=== PATIENT | male | born 1995 | race Caucasian/White ===

== ENCOUNTER 2017-01-30 14:36 | Emergency (ER) | payer OTHER ==
--- NOTE | 2017-01-30 17:13 | ED NURSING NOTES ---
Clinical Report - Nurses [facility] [place] [address] 01/30/2017 14:37 Patient: THOMAS CHOUDHARY TRIAGE Acuity: LEVEL 2. Chief Complaint: ALTERED MENTAL STATUS and DECREASED RESPONSIVENESS. No acute distress. SEPSIS SCREEN: Sepsis Screen. Negative (no infection suspected/documented). SUZIE COMA SCORE: [place] Coma Scale: 14- eyes open to voice (3); best verbal response- oriented x 4 (5); best motor response- obeys commands (6). --14:44 Ayde Butler R.N. 14:34 01/30/17. BP: 155/94. HR: 98. RR: 13. O2 saturation: 89% on room air. Temp: 97.7 F (oral). Pain level now: 0/10. --14:44 Ayde Butler R.N. Weight: 61.2 kg stated. Height/Length: 68 inches Per Patient. BMI: 20.5. --14:42 Ayde Butler R.N. Medications None. --14:37 Ayde Butler R.N. Medication/allergy information source: the patient. --14:44 Ayde Butler R.N. Allergies No Known Drug Allergy. --14:37 Ayde Butler R.N. History Arrived by EMS. Historian: EMS and patient. Unaccompanied. This started today. ( Pt reports he shot heroin and meth around 0900 today. EMS reports pt was found at a bus stop with decreased LOC. Police were called, who in turn called EMS.). PAST MEDICAL HX: Immunizations: up-to-date. SOCIAL HX: Current every day light tobacco smoker (cigarette)- less than 1/2 a pack per day. Occasional alcohol use. History of IV drug use: heroin, methamphetamines, marijuana. Recently used drugs today. Under influence in ED. NUTRITIONAL RISK ASSESSMENT: The nutritional risk assessment revealed no deficiencies. FUNCTIONAL ASSESSMENT: Functional assessment: no impairments noted. LEARNING NEEDS ASSESSMENT: The learning needs assessment revealed no barriers. FALL RISK ASSESSMENT: Fall risk assessment completed. Risk factors identified include patient impairment of mobility. Fall interventions initiated. Side rails up x2. Brakes on Bed in low position. Patient visible from nurses' station. Call light in reach. SKIN INTEGRITY ASSESSMENT: Skin integrity risk assessment completed. No skin integrity risk identified. --14:44 Ayde Butler R.N. PROBLEMS: Substance Abuse. Laceration. Tetanus Status. Immunizations. --14:48 Ayde Butler R.N. Assessment GENERAL / NEURO / PSYCH: Oriented X 4. Appears in no acute distress. Patient appears calm and cooperative. RESPIRATORY: Respirations not labored. Breath sounds within normal limits. CVS: Cardiac rhythm: sinus tachycardia. Capillary refill less than 2 seconds. GI / : Abdomen nontender. SKIN: Mucous membranes are pink. Skin is warm and dry. --14:44 Ayde Butler R.N. Interventions ID band on patient. To treatment room. --14:44 Ayde Butler R.N. PHYSICAL ASSESSMENT To room via stretcher. GENERAL / NEURO / PSYCH: Alert. Oriented X 4. Appears in no acute distress. Speech within normal limits. Patient appears well-nourished and neat and clean. CVS: Capillary refill less than 2 seconds. GI / : Abdomen soft and nontender. SKIN: Skin is warm and dry. Normal skin turgor. --14:45 Ayde Butler R.N. NURSING PROGRESS NOTES 14:11 01/30/2017 Started bag #1 1000 mL IV Fluids IV NS (Saline); at 1000 mL/hr over 1 hour(s) via site #1. Allergies verified and confirmed 5 rights. IV patency established. IV site checked: no pain, redness, or swelling. IV flushed thoroughly pre- and post-medication administration (bag 1 started by EMS SUPERINTENDENT MARINE). --16:11 Ayde Butler R.N. 14:46 01/30/17. Oxygen administered by nasal cannula at 2 liters. child monitor, pulse oximeter and NIBP monitor placed on patient; monitor alarms on. Patient gowned. Head of bed elevated. Two patient identifiers checked. Call light placed in reach. Side rails up x 1. Bed placed in lowest position. Brakes of bed on. Patient ready for evaluation- chart flagged and SENIOR PRODUCT DEVELOPMENT SCIENTIST notified. --14:46 Ayde Butler R.N. 14:46 01/30/17. Finger stick glucose: 140 mg/dL; performed by nurse. --14:46 Ayde Butler R.N. 14:53 01/30/17. BP: 142/79. HR: 89. RR: 17. O2 saturation: 100% on nasal cannula at 2 liters/minute. --14:53 Ayde Butler R.N. Patient ID band checked for patient name and birthdate: patient confirmed. Blood samples drawn from the left hand with 23g butterfly by tech per protocol ; labeled in presence of the patient and sent to lab: rainbow set and red, green, purple and blue top. --15:04 Lucinda Garza ER Tech1 15:34 01/30/17. BP: 122/91. HR: 95. RR: 16. O2 saturation: 100%. --15:35 Ayde Butler R.N. 16:07 01/30/17. Visitor at bedside (father). --16:07 Ayde Butler R.N. 16:08 01/30/17. ( Pt has attempted to void several times. Pt unable to void at this time.). --16:08 Ayde Butler R.N. 16:09 01/30/2017 Site #1 started prior to arrival by EMS via IV in the right wrist with an 18g angiocath. --16:09 Ayde Butler R.N. 16:11 01/30/2017 IV Fluids IV NS Discontinued: bag #1 infused. Total amount infused: 1000 mL. IV patency established. IV site checked: no pain, redness, or swelling. IV flushed thoroughly. --16:11 Ayde Butler R.N. DISPOSITION / DISCHARGE 17:16 01/30/17. BP: 148/95. HR: 92. RR: 13. O2 saturation: 100%. --17:18 Ayde Butler R.N. 17:23 01/30/17. Temp: 97.3 F. Pain level now: 0/10. --17:23 Ayde Butler R.N. Departure time: 17:Jan 30 2017. Condition at departure: improved and stable. No learning barriers present. Discharge instructions provided and reviewed with the patient and family. Patient and family verbalized understanding. Written instructions provided in [place]. The patient was discharged by the nurse practitioner. He was discharged home and accompanied by family. He left the Emergency Department ambulatory and via private vehicle. Family member driving. --17:24 Ayde Butler R.N. 17:19 01/30/2017 Site #1 removed upon discharge. Catheter intact. Manual pressure and bandaid applied. --17:24 Ayde Butler R.N. Locked/Released at 01/30/2017 17:24 by Ayde Butler R.N.
--- NOTE | 2017-01-30 17:13 | ED ORDER SUMMARY ---
..... Patient: THOMAS CHOUDHARY OrderSheet [facility] VisitID: [id number] [place] [address] 21y, M Registration Date/Time: 01/30/2017 ORDER SHEET Weight: 61.2 kg (stated) Allergies: No Known Drug Allergy GENERAL ORDERS: Art Framing Manager (Continuous) (14:34 01/30/2017 HBivens A.R.N.P.) (14:47 MWinterer R.N.) CBC w Diff Urgent (14:34 01/30/2017 HBivens A.R.N.P.) (Ack 14:47 PWeiler ER Tech1) (14:49 MWinterer R.N.) CMP Urgent (14:34 01/30/2017 HBivens A.R.N.P.) (Ack 14:47 PWeiler ER Tech1) (14:49 MWinterer R.N.) UA-Culture if indicated Urgent (14:34 01/30/2017 HBivens A.R.N.P.) (Ack 14:47 PWeiler ER Tech1) Urine Drug Screen Urgent (14:34 01/30/2017 HBivens A.R.N.P.) (Ack 14:47 PWeiler ER Tech1) POC Glucose (14:50 01/30/2017 HBivens A.R.N.P.) (14:52 MWinterer R.N.) MEDICATION ORDERS: IV FLUIDS: IV NS : initial bolus none -, then 1000 mL/hr (NOW) (16:08 01/30/2017 MWinterer R.N. per protocol) (16:11 MWinterer R.N.) ORDER SHEET NOTES: [Electronically signed by Ayde Butler R.N. (17:24 01/30/2017)] [Electronically signed by Jennifer HammondsR.N.P. (22:05 01/30/2017)] [Electronically locked/signed by Ayde Butler R.N. (17:24 01/30/2017)]
--- NOTE | 2017-01-30 17:13 | ED CLINICAL REPORT ---
Clinical Report - Physicians/Mid Levels [facility] [address] [place] [address] 01/30/2017 14:37 Patient: THOMAS CHOUDHARY Time Seen: 1424; upon arrival, initial patient contact, initial documentation, patient care assumed. Arrived- By ambulance. Historian- patient and EMS personnel. HISTORY OF PRESENT ILLNESS Chief Complaint: DECREASED MENTAL STATUS and CHANGED MENTAL STATUS. This started just prior to arrival and is still present. It was abrupt in onset. The patient is described as having decreased responsiveness. History of recent drug use. (says he did his heroin and meth today around 0900, found out bus stop, bystander called police, and police called ems). No weakness, numbness or recent fall. He has had difficulty walking. Usually is alert and oriented X3 and usually has normal mobility. Similar symptoms previously: None. Recent medical care: Not recently seen/assessed. REVIEW OF SYSTEMS No fever, headache, head injury, chest pain or difficulty breathing. No abdominal pain or vomiting. All systems otherwise negative, except as recorded above. PAST HISTORY See nurses notes. ( PROBLEMS: Substance Abuse. Laceration. Tetanus Status. Immunizations. --14:48 Ayde Butler R.N.). SOCIAL HISTORY Light tobacco smoker. Occasional alcohol use. History of heavy IV drug use: heroin, methamphetamines, marijuana. Recently used drugs just prior to arrival. Under influence in ED. No recent travel. Is a local resident. FAMILY HISTORY Negative. ADDITIONAL NOTES The nursing notes have been reviewed with agreement regarding the chief complaint, HPI, ROS, PMH and patient medications and allergies. PHYSICAL EXAM Vital Signs: 01/30/2017 14:34 BP: 155/94. HR: 98. RR: 13. O2 saturation: 89%. Temp: 97.7 F. Pain level now: 0/10. Have been reviewed as abnormal and appear to be correct. Blood pressure normal. Heart rate normal. Respiratory rate normal. Temperature normal. Oxygen saturation: 100 % now at 1450- oxygen saturation low. Appearance: No acute distress. Not alert. (sleepy). Head: Head atraumatic. Eyes: Pupils equal, round and reactive to light. ENT: Normal ENT inspection. Airway intact. Moist mucous membranes. Pharynx normal. Neck: Normal inspection. Neck supple. CVS: Normal heart rate and rhythm. Heart sounds normal. Pulses normal. Respiratory: No respiratory distress. Breath sounds normal. Abdomen: Soft and nontender. No organomegaly. Back: Normal inspection. Skin: Skin warm and dry. Normal skin color. No rash. Normal skin turgor. Extremities: Extremities exhibit normal ROM. No lower extremity edema. Neuro: Not alert. Oriented X 3. Alertness is decreased(drowsy). Mood/affect normal. Speech normal. Cranial nerves normal (as tested). No cerebellar findings. No motor deficit. No sensory deficit. LABS, X-RAYS, AND EKG Laboratory Tests: CBC w Diff: (LUIS: 01/30/2017 14:45) ( [facility] 01/30/[place] 15:07) Final results Test Result Flag Units (Reference) WHITE BLOOD COUNT 6.6 K/uL (4.5-11.5) RED BLOOD COUNT 4.92 M/uL (4.50-5.90) HEMOGLOBIN 14.9 gm/dL (13.5-17.5) HEMATOCRIT 42.5 % (41.0-53.0) MEAN CELL VOLUME 86 fL (80-100) MEAN CORPUSCULAR HGB 30 pg (26-34) MEAN CORPUSCULAR HGB CONC 35 g/dL (31-37) RED CELL DISTRIBUTION WIDTH 12.4 % (11.6-14.8) PLATELET COUNT 195 K/uL (150-400) NEUTROPHIL % 68.7 % (50-75) LYMPH % 18.6 L % (25-40) MONO % 11.4 % (3-14) EOSINOPHIL % 0.9 % (0-4) BASOPHIL % 0.4 % (0-2) CMP: (LUIS: 01/30/2017 14:45) ( [facility] 01/30/2017 15:24) Final results Test Result Flag Units (Reference) GLUCOSE 145 H mg/dL (70-110) BUN 18 mg/dL (7-18) CREATININE 1.4 H mg/dL (0.6-1.3) Estimated GFR >60 mL/min Estimated GFR- >60 mL/min Note: Persistent reduction over 3 months in eGFR<60 mL/min/1.73 m2 defines CKD. Patients with eGFR values>=60 mL/min/1.73 m2 may also have CKD if evidence ofpersistent proteinuria. Additional information may be foundat www.kidney.org. SODIUM 138 mmol/L (136-145) POTASSIUM 3.5 mmol/L (3.5-5.1) CHLORIDE 101 mmol/L (98-107) CARBON DIOXIDE 27 mmol/L (21-32) CALCIUM 8.6 mg/dL (8.5-10.1) TOTAL PROTEIN 7.6 g/dL (6.4-8.2) ALBUMIN 4.4 g/dL (3.3-5.0) BILIRUBIN, TOTAL 0.8 mg/dL (0.0-1.0) ALKALINE PHOSPHATASE 69 U/L (46-116) AST (SGOT) 23 U/L (15-37) ALT (SGPT) 26 U/L (12-78) . Bedside Tests: Glucose normal - 140 (performed at bedside). PROGRESS AND PROCEDURES Course of Care: 15:02 01/30/17. pt resting quietly, nad, resp even and unlabored, opened eyes as soon as I walked into room 1655. Dad and stepmom here, at bedside to speak with them both, agreed to take pt home, pt lives with grandparents, pt asleep, vs normal, resp even and unlabored, pt snoring, pt awakened, aware that dad is now here, agreed to dc Pt still has not voided yet. 01/30/2017 14:53 BP: 142/79. HR: 89. RR: 17. O2 saturation: 100%. Vital Signs: have been reviewed as normal and appear to be correct. Father counseled in person regarding the patient's stable condition, test results and diagnosis. 1655. Differential Diagnosis: Other possible considerations: od, substance abuse, tia, brain injury, cva, hypoglycemia. Above considerations are based on history, physical exam, reassessment and laboratory data. Differential diagnosis was discussed with patient. Disposition: Discharged home in good and improved condition (17:13). Condition: good and stable. CLINICAL IMPRESSION Chronic substance abuse- marijuana, heroin, methamphetamines with intoxication. INSTRUCTIONS Warnings: GENERAL WARNINGS: Return or contact your physician immediately if your condition worsens or changes unexpectedly, if not improving as expected, or if other problems arise. Specifically return if problem worsens. Follow-up: Follow up with your doctor in about two days even if well. Call for an appointment. Summary of care provided to patient and family. Understanding of the discharge instructions verbalized by patient and family. (Electronically signed by Jennifer Hammonds A.R.NHeather 01/30/2017 22:05)
--- NOTE | 2017-01-30 17:13 | ED NURSING NOTES ---
Clinical Report - Nurses [facility] [place] [address] 01/30/2017 14:37 Patient: THOMAS CHOUDHARY TRIAGE Acuity: LEVEL 2. Chief Complaint: ALTERED MENTAL STATUS and DECREASED RESPONSIVENESS. No acute distress. SEPSIS SCREEN: Sepsis Screen. Negative (no infection suspected/documented). SUZIE COMA SCORE: [place] Coma Scale: 14- eyes open to voice (3); best verbal response- oriented x 4 (5); best motor response- obeys commands (6). --14:44 Ayde Butler R.N. 14:34 01/30/17. BP: 155/94. HR: 98. RR: 13. O2 saturation: 89% on room air. Temp: 97.7 F (oral). Pain level now: 0/10. --14:44 Ayde Butler R.N. Weight: 61.2 kg stated. Height/Length: 68 inches Per Patient. BMI: 20.5. --14:42 Ayde Butler R.N. Medications None. --14:37 Ayde Butler R.N. Medication/allergy information source: the patient. --14:44 Ayde Butler R.N. Allergies No Known Drug Allergy. --14:37 Ayde Butler R.N. History Arrived by EMS. Historian: EMS and patient. Unaccompanied. This started today. ( Pt reports he shot heroin and meth around 0900 today. EMS reports pt was found at a bus stop with decreased LOC. Police were called, who in turn called EMS.). PAST MEDICAL HX: Immunizations: up-to-date. SOCIAL HX: Current every day light tobacco smoker (cigarette)- less than 1/2 a pack per day. Occasional alcohol use. History of IV drug use: heroin, methamphetamines, marijuana. Recently used drugs today. Under influence in ED. NUTRITIONAL RISK ASSESSMENT: The nutritional risk assessment revealed no deficiencies. FUNCTIONAL ASSESSMENT: Functional assessment: no impairments noted. LEARNING NEEDS ASSESSMENT: The learning needs assessment revealed no barriers. FALL RISK ASSESSMENT: Fall risk assessment completed. Risk factors identified include patient impairment of mobility. Fall interventions initiated. Side rails up x2. Brakes on Bed in low position. Patient visible from nurses' station. Call light in reach. SKIN INTEGRITY ASSESSMENT: Skin integrity risk assessment completed. No skin integrity risk identified. --14:44 Ayde Butler R.N. PROBLEMS: Substance Abuse. Laceration. Tetanus Status. Immunizations. --14:48 Ayde Butler R.N. Assessment GENERAL / NEURO / PSYCH: Oriented X 4. Appears in no acute distress. Patient appears calm and cooperative. RESPIRATORY: Respirations not labored. Breath sounds within normal limits. CVS: Cardiac rhythm: sinus tachycardia. Capillary refill less than 2 seconds. GI / : Abdomen nontender. SKIN: Mucous membranes are pink. Skin is warm and dry. --14:44 Ayde Butler R.N. Interventions ID band on patient. To treatment room. --14:44 Ayde Butler R.N. PHYSICAL ASSESSMENT To room via stretcher. GENERAL / NEURO / PSYCH: Alert. Oriented X 4. Appears in no acute distress. Speech within normal limits. Patient appears well-nourished and neat and clean. CVS: Capillary refill less than 2 seconds. GI / : Abdomen soft and nontender. SKIN: Skin is warm and dry. Normal skin turgor. --14:45 Ayde Butler R.N. NURSING PROGRESS NOTES 14:11 01/30/2017 Started bag #1 1000 mL IV Fluids IV NS (Saline); at 1000 mL/hr over 1 hour(s) via site #1. Allergies verified and confirmed 5 rights. IV patency established. IV site checked: no pain, redness, or swelling. IV flushed thoroughly pre- and post-medication administration (bag 1 started by EMS INFORMATICS ANALYST). --16:11 Ayde Butler R.N. 14:46 01/30/17. Oxygen administered by nasal cannula at 2 liters. salvage inspector, pulse oximeter and NIBP monitor placed on patient; monitor alarms on. Patient gowned. Head of bed elevated. Two patient identifiers checked. Call light placed in reach. Side rails up x 1. Bed placed in lowest position. Brakes of bed on. Patient ready for evaluation- chart flagged and COMPENSATION INTERN notified. --14:46 Ayde Butler R.N. 14:46 01/30/17. Finger stick glucose: 140 mg/dL; performed by nurse. --14:46 Ayde Butler R.N. 14:53 01/30/17. BP: 142/79. HR: 89. RR: 17. O2 saturation: 100% on nasal cannula at 2 liters/minute. --14:53 Ayde Butler R.N. Patient ID band checked for patient name and birthdate: patient confirmed. Blood samples drawn from the left hand with 23g butterfly by tech per protocol ; labeled in presence of the patient and sent to lab: rainbow set and red, green, purple and blue top. --15:04 Lucinda Garza ER Tech1 15:34 01/30/17. BP: 122/91. HR: 95. RR: 16. O2 saturation: 100%. --15:35 Ayde Butler R.N. 16:07 01/30/17. Visitor at bedside (father). --16:07 Ayde Butler R.N. 16:08 01/30/17. ( Pt has attempted to void several times. Pt unable to void at this time.). --16:08 Ayde Butler R.N. 16:09 01/30/2017 Site #1 started prior to arrival by EMS via IV in the right wrist with an 18g angiocath. --16:09 Ayde Butler R.N. 16:11 01/30/2017 IV Fluids IV NS Discontinued: bag #1 infused. Total amount infused: 1000 mL. IV patency established. IV site checked: no pain, redness, or swelling. IV flushed thoroughly. --16:11 Ayde Butler R.N. DISPOSITION / DISCHARGE 17:16 01/30/17. BP: 148/95. HR: 92. RR: 13. O2 saturation: 100%. --17:18 Ayde Butler R.N. 17:23 01/30/17. Temp: 97.3 F. Pain level now: 0/10. --17:23 Ayde Butler R.N. Departure time: 17:Jan 30 2017. Condition at departure: improved and stable. No learning barriers present. Discharge instructions provided and reviewed with the patient and family. Patient and family verbalized understanding. Written instructions provided in [place]. The patient was discharged by the nurse practitioner. He was discharged home and accompanied by family. He left the Emergency Department ambulatory and via private vehicle. Family member driving. --17:24 Ayde Butler R.N. 17:19 01/30/2017 Site #1 removed upon discharge. Catheter intact. Manual pressure and bandaid applied. --17:24 Ayde Butler R.N. Locked/Released at 01/30/2017 17:24 by Ayde Butler R.N.
--- NOTE | 2017-01-30 17:13 | ED ORDER SUMMARY ---
..... Patient: THOMAS CHOUDHARY OrderSheet [facility] VisitID: [id number] [place] [address] 21y, M Registration Date/Time: 01/30/2017 ORDER SHEET Weight: 61.2 kg (stated) Allergies: No Known Drug Allergy GENERAL ORDERS: Digital Strategist (Continuous) (14:34 01/30/2017 HBivens A.R.N.P.) (14:47 MWinterer R.N.) CBC w Diff Urgent (14:34 01/30/2017 HBivens A.R.N.P.) (Ack 14:47 PWeiler ER Tech1) (14:49 MWinterer R.N.) CMP Urgent (14:34 01/30/2017 HBivens A.R.N.P.) (Ack 14:47 PWeiler ER Tech1) (14:49 MWinterer R.N.) UA-Culture if indicated Urgent (14:34 01/30/2017 HBivens A.R.N.P.) (Ack 14:47 PWeiler ER Tech1) Urine Drug Screen Urgent (14:34 01/30/2017 HBivens A.R.N.P.) (Ack 14:47 PWeiler ER Tech1) POC Glucose (14:50 01/30/2017 HBivens A.R.N.P.) (14:52 MWinterer R.N.) MEDICATION ORDERS: IV FLUIDS: IV NS : initial bolus none -, then 1000 mL/hr (NOW) (16:08 01/30/2017 MWinterer R.N. per protocol) (16:11 MWinterer R.N.) ORDER SHEET NOTES: [Electronically signed by Ayde Butler R.N. (17:24 01/30/2017)] [Electronically signed by Jennifer HammondsR.N.P. (22:05 01/30/2017)] [Electronically locked/signed by Ayde Butler R.N. (17:24 01/30/2017)]
--- NOTE | 2017-01-30 22:05 | ED MED RECONCILIATION SUMMARY ---
Patient: THOMAS CHOUDHARY Medication Reconciliation Report [facility] VisitID: [id number] [address] [place] [address] 21y, M Registration Date/Time: 01/30/2017 Weight: 61.2 kg Height/Length: 68 in. BMI: 20.5 ALLERGIES: No Known Drug Allergy The patient's Home Medications are listed below: NONE. The source(s) of the original Home Medication information: patient The following Medications were given to the patient in the Emergency Department: IV NS IV Fluids bolus 0, then 1000 mL/hr, administered: 01/30/2017 2:11:00 PM The following Medications were prescribed to the patient: None.
--- NOTE | 2017-01-30 22:05 | ED DISCHARGE INSTRUCTIONS ---
Patient: THOMAS CHOUDHARY General Instructions [facility] VisitID: [id number] [place] [address] 21y, M Registration Date/Time: 01/30/2017 Chronic substance abuse- marijuana, heroin, methamphetamines with intoxication. INSTRUCTIONS Warnings: GENERAL WARNINGS: Return or contact your physician immediately if your condition worsens or changes unexpectedly, if not improving as expected, or if other problems arise. Specifically return if problem worsens. Follow-up: Follow up with your doctor in about two days even if well. Call for an appointment. Summary of care provided to patient and family. Understanding of the discharge instructions verbalized by patient and family. ADDITIONAL INFORMATION Drug Abuse Use and abuse of such drugs as marijuana, amphetamines (speed, crank), cocaine, heroin or prescription pain medicines (Vicodin, codeine), sedatives and sleeping pills (Valium, Klonopin), PCP, mescaline and LSD may lead to addiction or dependence. Once this occurs, you are at greater risk for any of the following: Craving for the drug and unable to stop using the drug even though you think you want to stop (psychological dependence) Drug withdrawal symptoms if you stop taking the drug (physical dependence) Loss of your job or your family Arrest, conviction and [place] [facility] sentence for possession of an illegal substance or for driving under the influence of such a substance Accidental injuries to yourself or others while you are under the influence of the drug (in a car or at home). HIV infection (much greater risk if you use IV drugs) Other sexually transmitted diseases (herpes, chlamydia, gonorrhea and others) Severe and fatal infection of the heart valves (if you use IV drugs) Stroke, heart attack, hepatitis B or C, kidney failure from overdose Home Care: Admit you have a drug problem. Ask for help from your family and close friends. Seek professional help. This could be in the form of individual psychotherapy or counseling or an outpatient, inpatient, or residential drug treatment program. Join a self-help group for drug abuse. Avoid friends who abuse drugs themselves or tempt you to continue abusing drugs. Eat a balanced diet and begin a regular exercise program. Follow Up with your doctor or as advised by our staff. Contact one of the resources below for help. National [place] on Alcoholism and Drug Dependence www.ncadd.org 051-062-FDOD Narcotics Anonymous www.na.org 230-644-0351 National Alcohol and Substance Abuse Information Center (for referral to treatment programs) www.[employer] 993-723-0671 Get Prompt Medical Attention if any of the following occur: Agitation, anxiety, unable to sleep Unintended weight loss (more than 10 to 15 pounds over 3 months) Seizure Chest pain Fever of 100.4F (38C) or higher, or as directed by your healthcare provider Excess drowsiness or inability to be awakened Shortness of breath Slow breathing under 8 breaths per minute Cough with colored sputum Redness, swelling or tenderness at an injection site Marijuana Abuse Marijuana is the most widely used illegal drug in the [place]. It is called by various names such as pot, weed, blunts, grass, reefer, ganja, hash, hashish. It is usually smoked but can be mixed with foods or brewed as a tea. It is sometimes sold with PCP (Trell Dust) or amphetamine mixed in it. These drugs can cause other harmful side effects. Marijuana can cause the following effects: Changes in mood (stimulated, happy, drowsy, depressed, paranoid) Hallucinations Increased heart rate and blood pressure Increased appetite Time distortion, difficulty concentrating, impaired memory Lung damage (similar to cigarettes with chronic cough, wheezing, frequent colds and bronchitis) You can become psychologically dependent on marijuana. That means the craving to use the drug is emotional or psychological rather than due to physical withdrawal. Is Marijuana Running Your Life? Here are some of the signs: Relying on marijuana to feel good, forget problems, deal with stress or to relax Wanting to be alone most of the time or only with others who use drugs Losing interest in things that used to be important Changes in school or job performance or attendance Spending a lot of time thinking about how to get marijuana Stealing or selling your things so you can buy marijuana Unable to stop using even though you may want to quit Increasing anxiety, anger,or depression Sleeping too much, changes in eating habits (weight loss or gain) Needing to use more to get the same effect Home Care Once you have become addicted to any drug, quitting is hard to do. Most people find they can't quit without help. So, dont try to do this alone. Talk to someone you trust who can support you. Seek professional help. Avoid people and places where drugs are used. That only increases the temptation to use. Follow Up with your doctor or as advised by our staff. For more information or a referral to a treatment center in your area, contact: Your local mental health center or the National Alcohol and Substance Abuse Information Center (735)-769-9073 www.addictioncareWan Shidao management.com National [place] on Alcoholism and Drug Dependence 171-719-LLPB www.ncadd.org Marijuana Anonymous 493-019-3770 www.marijuana-anonymous.org Get Prompt Medical Attention if any of the following occur: You feel extreme depression, fear, anxiety, or anger toward yourself or others You feel out of control You feel that you may try to harm yourself or another You have been given the following additional information: Drug Abuse Marijuana Abuse (Electronically signed by Jennifer Hammonds A.R.N.P. 01/30/2017 22:05)
--- NOTE | 2017-01-30 22:05 | ED MED RECONCILIATION SUMMARY ---
Patient: THOMAS CHOUDHARY Medication Reconciliation Report [facility] VisitID: [id number] [address] [place] [address] 21y, M Registration Date/Time: 01/30/2017 Weight: 61.2 kg Height/Length: 68 in. BMI: 20.5 ALLERGIES: No Known Drug Allergy The patient's Home Medications are listed below: NONE. The source(s) of the original Home Medication information: patient The following Medications were given to the patient in the Emergency Department: IV NS IV Fluids bolus 0, then 1000 mL/hr, administered: 01/30/2017 2:11:00 PM The following Medications were prescribed to the patient: None.
--- NOTE | 2017-01-30 22:05 | ED MAR SUMMARY ---
..... Medication Administration Record [facility] [address] [place] [address] Patient: THOMAS CHOUDHARY Visit ID: [id number] 21y, M Weight: 61.2 kg Height/Length: 68 in BMI: 20.5 ALLERGIES: No Known Drug Allergy Start 14:11 01/30/2017 Ayde Butler RAmelie, Stop 16:11 01/30/2017 Ayde Butler R.N. Medication Administered: IV NS (SALINE), Dose: IV Fluids over 1 hour(s), Rate: 1000 mL/hr, Dispensed: 1000 mL bag, Site: #1. Medication Ordered: IV NS : initial bolus none -, then 1000 mL/hr (NOW).
--- NOTE | 2017-01-30 22:05 | ED MAR SUMMARY ---
..... Medication Administration Record [facility] [address] [place] [address] Patient: THOMAS CHOUDHARY Visit ID: [id number] 21y, M Weight: 61.2 kg Height/Length: 68 in BMI: 20.5 ALLERGIES: No Known Drug Allergy Start 14:11 01/30/2017 Ayde Butler RAmelie, Stop 16:11 01/30/2017 Ayde Butler R.N. Medication Administered: IV NS (SALINE), Dose: IV Fluids over 1 hour(s), Rate: 1000 mL/hr, Dispensed: 1000 mL bag, Site: #1. Medication Ordered: IV NS : initial bolus none -, then 1000 mL/hr (NOW).
--- NOTE | 2017-01-30 22:05 | ED DISCHARGE INSTRUCTIONS ---
Patient: THOMAS CHOUDHARY General Instructions [facility] VisitID: [id number] [place] [address] 21y, M Registration Date/Time: 01/30/2017 Chronic substance abuse- marijuana, heroin, methamphetamines with intoxication. INSTRUCTIONS Warnings: GENERAL WARNINGS: Return or contact your physician immediately if your condition worsens or changes unexpectedly, if not improving as expected, or if other problems arise. Specifically return if problem worsens. Follow-up: Follow up with your doctor in about two days even if well. Call for an appointment. Summary of care provided to patient and family. Understanding of the discharge instructions verbalized by patient and family. ADDITIONAL INFORMATION Drug Abuse Use and abuse of such drugs as marijuana, amphetamines (speed, crank), cocaine, heroin or prescription pain medicines (Vicodin, codeine), sedatives and sleeping pills (Valium, Klonopin), PCP, mescaline and LSD may lead to addiction or dependence. Once this occurs, you are at greater risk for any of the following: Craving for the drug and unable to stop using the drug even though you think you want to stop (psychological dependence) Drug withdrawal symptoms if you stop taking the drug (physical dependence) Loss of your job or your family Arrest, conviction and nursing home sentence for possession of an illegal substance or for driving under the influence of such a substance Accidental injuries to yourself or others while you are under the influence of the drug (in a car or at home). HIV infection (much greater risk if you use IV drugs) Other sexually transmitted diseases (herpes, chlamydia, gonorrhea and others) Severe and fatal infection of the heart valves (if you use IV drugs) Stroke, heart attack, hepatitis B or C, kidney failure from overdose Home Care: Admit you have a drug problem. Ask for help from your family and close friends. Seek professional help. This could be in the form of individual psychotherapy or counseling or an outpatient, inpatient, or residential drug treatment program. Join a self-help group for drug abuse. Avoid friends who abuse drugs themselves or tempt you to continue abusing drugs. Eat a balanced diet and begin a regular exercise program. Follow Up with your doctor or as advised by our staff. Contact one of the resources below for help. National [place] on Alcoholism and Drug Dependence www.ncadd.org 917-728-DZOH Narcotics Anonymous www.na.org 217-595-4667 National Alcohol and Substance Abuse Information Center (for referral to treatment programs) www.[employer] 314-649-6397 Get Prompt Medical Attention if any of the following occur: Agitation, anxiety, unable to sleep Unintended weight loss (more than 10 to 15 pounds over 3 months) Seizure Chest pain Fever of 100.4F (38C) or higher, or as directed by your healthcare provider Excess drowsiness or inability to be awakened Shortness of breath Slow breathing under 8 breaths per minute Cough with colored sputum Redness, swelling or tenderness at an injection site Marijuana Abuse Marijuana is the most widely used illegal drug in the [place]. It is called by various names such as pot, weed, blunts, grass, reefer, ganja, hash, hashish. It is usually smoked but can be mixed with foods or brewed as a tea. It is sometimes sold with PCP (Trell Dust) or amphetamine mixed in it. These drugs can cause other harmful side effects. Marijuana can cause the following effects: Changes in mood (stimulated, happy, drowsy, depressed, paranoid) Hallucinations Increased heart rate and blood pressure Increased appetite Time distortion, difficulty concentrating, impaired memory Lung damage (similar to cigarettes with chronic cough, wheezing, frequent colds and bronchitis) You can become psychologically dependent on marijuana. That means the craving to use the drug is emotional or psychological rather than due to physical withdrawal. Is Marijuana Running Your Life? Here are some of the signs: Relying on marijuana to feel good, forget problems, deal with stress or to relax Wanting to be alone most of the time or only with others who use drugs Losing interest in things that used to be important Changes in school or job performance or attendance Spending a lot of time thinking about how to get marijuana Stealing or selling your things so you can buy marijuana Unable to stop using even though you may want to quit Increasing anxiety, anger,or depression Sleeping too much, changes in eating habits (weight loss or gain) Needing to use more to get the same effect Home Care Once you have become addicted to any drug, quitting is hard to do. Most people find they can't quit without help. So, dont try to do this alone. Talk to someone you trust who can support you. Seek professional help. Avoid people and places where drugs are used. That only increases the temptation to use. Follow Up with your doctor or as advised by our staff. For more information or a referral to a treatment center in your area, contact: Your local mental health center or the National Alcohol and Substance Abuse Information Center (541)-544-7695 www.addictioncareAudioms.com National [place] on Alcoholism and Drug Dependence 758-864-GVQL www.ncadd.org Marijuana Anonymous 442-578-5008 www.marijuana-anonymous.org Get Prompt Medical Attention if any of the following occur: You feel extreme depression, fear, anxiety, or anger toward yourself or others You feel out of control You feel that you may try to harm yourself or another You have been given the following additional information: Drug Abuse Marijuana Abuse (Electronically signed by Jennifer Hammonds A.R.N.P. 01/30/2017 22:05)
== END 2017-01-30 17:25 | disposition home or self-care (01) ==
LOC: ED SRH 14:36
DX: F12.129 Cannabis abuse with intoxication, unspecified (principal); F11.129 Opioid abuse with intoxication, unspecified; F15.129 Other stimulant abuse with intoxication, unspecified; F17.210 Nicotine dependence, cigarettes, uncomplicated
CPT/HCPCS: 90074; 90098; 90100; 95059